=== PATIENT | male | born 1990 | race Asian ===

== ENCOUNTER 2016-06-24 21:14 | Emergency (ER) | payer OTHER ==
[~2016-06-24] VITALS: Ht 180.3 cm; Wt 72.6 kg
[2016-06-24 21:30] VITALS: BP 131/78
--- NOTE | 2016-06-24 21:34 | Emergency Room Report ---
History of Present Illness General Chief Complaint: Syncope Source: Patient, EMS Present Illness HPI Patient was at [place] nearby [place] he had gone into a hot bath after standing up and going to a cold bath started feeling lightheaded and missing remembers is being on the ground Patient has pain to the back of the head and also had a laceration to the fore head Patient does report having one beer before this episode Denies any chest pain or shortness of breath denies any back or flank pain Denies any focal weakness Denies any recent fevers or chills at this time feels back to normal Allergies: Coded Allergies: SULFA (SULFONAMIDE ANTIBIOTICS) (Verified Allergy, Intermediate, 06/24/16) Patient History Past Medical History: see triage record Pertinent Family History: none Reviewed Nursing Documentation: PMH: Agreed, PSxH: Agreed Nursing Documentation-PMH Past Medical History: No Stated History Review of Systems All Other Systems: negative except mentioned in HPI Physical Exam Vital Signs Date Time Temp Pulse Resp B/P Pulse Ox O2 Delivery O2 Flow Rate FiO2 06/24/16 21:12 102 16 136/87 100 Room Air Sp02 EP Interpretation: reviewed, normal General Appearance: well appearing, no apparent distress Head: other - 2 x 2 centimeter hematoma occipital region of the head, approximately 3 cm laceration midforehead, fairly linear source of the mid forehead and comes down to just at the left eyebrow Eyes: bilateral eye EOMI, bilateral eye PERRL ENT: hearing grossly normal, normal pharynx, TMs + canals normal, uvula midline Neck: full range of motion, supple, no meningismus, no bony tend Respiratory: lungs clear, normal breath sounds, no rhonchi, no respiratory distress, no retraction, no accessory muscle use Cardiovascular #1: normal peripheral pulses, regular rate, rhythm, no edema, no gallop, no JVD, no murmur Gastrointestinal: normal bowel sounds, non tender, soft, no mass, no organomegaly, non-distended, no guarding, no hernia, no pulsatile mass, no rebound Genitourinary: no CVA tenderness Musculoskeletal: normal inspection Neurologic: oriented x3, responsive, health actuary III-XII nml as tested, motor strength/ tone normal, sensory intact Psychiatric: mood/affect normal Skin: warm/dry, palpation normal, other - Laceration as above Lymphatic: normal inspection, no adenopathy Procedures Laceration/Wound Repair Progress Patient had the area cleansed and irrigated Total of 3 mL 1% lidocaine with epinephrine were used for local sedation Full-length approximately 3 cm fairly linear Total of 5 6.0 monofilament sutures were placed in an interrupted fashion Good approximation There was also 3 Steri-Strips placed in between the lacerated areas Patient tolerated the procedure well Medical Decision Making Diagnostic Impression: Primary Impression: Syncope Additional Impression: Sinusitis ER Course Patient is a fairly complex patient with multiple differential to consideration including but not limited to cardiac cardiopulmonary and vascular emergencies Given the patient's headache and hematoma along with anterior laceration That was felt to be enough trauma for CT head to be obtained This was read as showing sinusitis no other intracranial pathology patient's blood work initially showed a low potassium However calcium and other listless were abnormal Differential for this was repeated which showed a significantly different finding on the repeat with improved numbers Patient has continued to do well remains hemodynamically stable Appears to have had a likely vasovagal type pathology However his platelets were also somewhat low and low white blood cell count on the CBC this will require close outpatient followup and repeat check in the next one month Labs Test 06/24/16 21:57 06/24/16 23:11 White Blood Count 4.1 K/UL (4.8-10.8) Red Blood Count 5.25 M/UL (4.70-6.10) Hemoglobin 15.6 G/DL (14.2-18.0) Hematocrit 46.2 % (42.0-52.0) Mean Corpuscular Volume 88 FL (80-99) Mean Corpuscular Hemoglobin 29.8 PG (27.0-31.0) Mean Corpuscular Hemoglobin Concent 33.8 G/DL (32.0-36.0) Red Cell Distribution Width 11.6 % (11.6-14.8) Platelet Count 118 K/UL (150-450) Mean Platelet Volume 11.8 FL (6.5-10.1) Neutrophils (%) (Auto) 58.9 % (45.0-75.0) Lymphocytes (%) (Auto) 28.2 % (20.0-45.0) Monocytes (%) (Auto) 8.1 % (1.0-10.0) Eosinophils (%) (Auto) 3.4 % (0.0-3.0) Basophils (%) (Auto) 1.4 % (0.0-2.0) Sodium Level 144 mEQ/L (135-145) 140 mEQ/L (135-145) Potassium Level 2.6 mEQ/L (3.4-4.9) 3.7 mEQ/L (3.4-4.9) Chloride Level 110 mEQ/L (98-107) 101 mEQ/L (98-107) Carbon Dioxide Level 18 mEQ/L (20-30) 23 mEQ/L (20-30) Anion Gap 16 (5-15) 16 (5-15) Blood Urea Nitrogen 12 mg/dL (7-23) 14 mg/dL (7-23) Creatinine 0.6 mg/dL (0.7-1.2) 0.8 mg/dL (0.7-1.2) Estimat Glomerular Filtration Rate > 60 mL/min (>60) > 60 mL/min (>60) Glucose Level 103 mg/dL (74-106) 103 mg/dL (74-106) Calcium Level 6.9 mg/dL (8.6-10.2) 8.7 mg/dL (8.6-10.2) EKG Diagnostic Results Rate: normal Rhythm: NSR ST Segments: no acute changes Rhythm Strip Diag. Results EP Interpretation: yes Rate: 67 Rhythm: NSR, no PVC's, no ectopy CT/MRI/US Diagnostic Results CT/MRI/US Diagnostic Results : Impression CT head: Sinusitis, no intracranial pathology Last Vital Signs Date Time Temp Pulse Resp B/P Pulse Ox O2 Delivery O2 Flow Rate FiO2 06/24/16 21:12 102 16 136/87 100 Room Air Status: improved Disposition: HOME, SELF-CARE Condition: Improved Scripts Ibuprofen* (MOTRIN*) 600 Mg Tablet 600 MG ORAL Q8H Y for For Pain, #20 TAB 0 Refills Prov: MARCELA TROY D.O. 06/25/16 Amoxicillin* (AMOXIL*) 500 Mg Capsule 500 MG ORAL THREE TIMES A DAY, #21 CAP Prov: MARCELA TROY D.O. 06/25/16 Additional Instructions: Patient is provided with the discharge instructions notified to follow up with primary doctor in the next 2-3 days otherwise return to the er with any worsening symptoms. MARCELA TROY D.O. Jun 24, 2016 21:34
[2016-06-24] MEDS ORDERED: TdaP Vaccine 0.5ml Syr IM ONE (21:45)
[2016-06-24 22:12] LABS: BASOPHILS % (AUTO) 1.4 % (0.0-2.0); EOSINOPHILS % (AUTO) 3.4 % (0.0-3.0); LYMPHOCYTES % (AUTO) 28.2 % (20.0-45.0); MEAN CORPUSCULAR HEMOGLOBIN 29.8 PG (27.0-31.0); MEAN CORPUSCULAR HGB CONC 33.8 G/DL (32.0-36.0); MEAN CORPUSCULAR VOLUME 88 FL (80-99); MEAN PLATELET VOLUME 11.8 FL (6.5-10.1); MONOCYTES % (AUTO) 8.1 % (1.0-10.0); NEUTROPHILS % (AUTO) 58.9 % (45.0-75.0); PLATELET COUNT 118 K/UL (150-450); RED BLOOD COUNT 5.25 M/UL (4.70-6.10); RED CELL DISTRIBUTION WIDTH 11.6 % (11.6-14.8); WHITE BLOOD COUNT 4.1 K/UL (4.8-10.8)
[2016-06-24 22:29] LABS: CALCIUM 6.9 mg/dL (8.6-10.2); CARBON DIOXIDE 18 mEQ/L (20-30); CHLORIDE 110 mEQ/L (98-107); CREATININE 0.6 mg/dL (0.7-1.2); GLOMERULAR FILTRATION RATE > 60 mL/min (>60); HEMOLYSIS 17; SODIUM 144 mEQ/L (135-145)
[2016-06-24 22:35] LABS: ANION GAP 16 (5-15)
[2016-06-24 22:43] LABS: POTASSIUM 2.6 mEQ/L (3.4-4.9)
[2016-06-24 23:13] VITALS: BP 131/78
[2016-06-24 23:35] LABS: ANION GAP 16 (5-15); CALCIUM 8.7 mg/dL (8.6-10.2); CARBON DIOXIDE 23 mEQ/L (20-30); CHLORIDE 101 mEQ/L (98-107); CREATININE 0.8 mg/dL (0.7-1.2); GLOMERULAR FILTRATION RATE > 60 mL/min (>60); HEMOLYSIS 10; POTASSIUM 3.7 mEQ/L (3.4-4.9); SODIUM 140 mEQ/L (135-145)
[2016-06-25] MEDS ORDERED: AMOXICILLIN500 MG ORAL (00:16)
[2016-06-25] MEDS ORDERED: IBUPROFEN600 MG ORAL (00:16)
[2016-06-25 00:25] VITALS: BP 124/76
[2016-06-25 00:28] VITALS: BP 124/76
--- NOTE | 2016-06-25 12:50 | Diagnostic Imaging Report ---
Indication: PAIN, status post fall, laceration above left eye Technique: Continuous helical CT scanning of the head was performed without intravenous contrast material. Axial and coronal 5 mm sections were generated. Radiation dose was minimized using automated exposure control Dose: Total Dose Length Product - DLP [address] Dose Index - CTDIvol(s) 70.38 mGy. Comparison: None Findings: The ventricular system is normal in size and configuration. There is no shift of midline structures. No abnormal extra-axial fluid collections are noted. There is no evidence of intracerebral bleeding. No other abnormal high or low density areas are noted within the brain. There is minimal left supraorbital scalp soft tissue swelling and a small laceration noted. There is ethmoid and sphenoid sinus disease. The visualized orbits are unremarkable. Impression: Normal CT scan of the head without contrast material. Incidental finding of sinus disease This agrees with the preliminary interpretation provided overnight by [facility]. The CT scanner at [facility] is accredited by the [employer] and the scans are performed using protocols designed to limit radiation exposure to as low as reasonably achievable to attain images of sufficient resolution adequate for diagnostic evaluation.
--- NOTE | 2016-06-29 20:27 | Cardiology Report ---
APPROVED REPORT EKG Measurement Heart [id number] Normal sinus rhythm with sinus arrhythmia Normal ECG
== END 2016-06-25 00:28 | disposition home or self-care (01) ==
LOC: EDBD 21:14 → EMR 21:55
DX: R55 Syncope and collapse (principal); J32.9 Chronic sinusitis, unspecified; S01.81XA Laceration without foreign body of other part of head, initial encounter; W19.XXXA Unspecified fall, initial encounter; Y92.89 Other specified places as the place of occurrence of the external cause; S00.03XA Contusion of scalp, initial encounter; Z23 Encounter for immunization; Z88.2 Allergy status to sulfonamides
CPT/HCPCS: 36415; 70450; 80048; 85025; 90471; 90715; 93005; 96360; J8499